=== PATIENT | male | born 1950 | race Caucasian/White ===

== ENCOUNTER 2022-02-02 11:12 | Emergency (ER) | payer MEDICARE ==
[~2022-02-02] VITALS: Ht 182.9 cm; Wt 106.6 kg
[2022-02-02] MEDS ORDERED: METFORMIN HCL1000 MG PO (11:42)
[2022-02-02] MEDS ORDERED: EZETIMIBE10 MG PO (11:42)
[2022-02-02] MEDS ORDERED: LEVOTHYROXINE50 MCG PO (11:42)
[2022-02-02] MEDS ORDERED: LANTUS SOL100 UNIT/1 SUB-Q (11:42)
[2022-02-02] MEDS ORDERED: ROSUVASTATIN CA10 MG PO (11:43)
[2022-02-02] MEDS ORDERED: FINASTERIDE5 MG PO (11:43)
[2022-02-02] MEDS ORDERED: FUROSEMIDE20 MG PO (11:43)
[2022-02-02] MEDS ORDERED: PIOGLITAZONE HC45 MG PO (11:43)
[2022-02-02] MEDS ORDERED: OMEPRAZOLE20 MG PO (11:43)
== END 2022-02-02 13:55 | disposition home or self-care (01) ==
LOC: ED 11:12
DX: U07.1 COVID-19 (principal); Z23 Encounter for immunization; E11.9 Type 2 diabetes mellitus without complications; E03.9 Hypothyroidism, unspecified; Z88.5 Allergy status to narcotic agent; Z79.899 Other long term (current) drug therapy; Z79.4 Long term (current) use of insulin; Z79.84 Long term (current) use of oral hypoglycemic drugs
CPT/HCPCS: 96374; 99283-25